=== PATIENT | male | born 1990 | race Two or more races ===

== ENCOUNTER 2018-07-27 06:15 | Emergency (ER) | payer OTHER ==
[~2018-07-27] VITALS: Ht 177.8 cm; Wt 95.3 kg
--- NOTE | 2018-07-27 06:15 | NUR ---
PT [id number] FROM HOME S/P WITNESSED SEIZURE LASTING ABOUT 1 MIN. -TRAUMA. -HX PER RA, BS 158. PT AOX4. NAD NOTED. RESP EVEN AND UNLABORED. DENIES PAIN AT THIS TIME. PT ON MONITOR IN BED 9. SEIZURE PRECAUTIONS IMPLEMENTED. WILL CONTINUE TO MONITOR.
[2018-07-27] MEDS ORDERED: LORAZEPAM INJ 2 MG/ML VIAL ONE (06:22)
--- NOTE | 2018-07-27 06:29 | NUR ---
BLOOD DRAWN AND GIVEN TO LAB
[2018-07-27] MEDS ORDERED: LORAZEPAM INJ 2 MG/ML VIAL IVP ONE (06:30)
[2018-07-27 06:37] LABS: BASOPHILS # (AUTO) 0.1 /CMM (0.0-0.2); BASOPHILS % (AUTO) 0.5 % (0.0-2.0); EOSINOPHILS % (AUTO) 0.5 % (0.0-6.0); HEMATOCRIT 48 % (39-51); HEMOGLOBIN 15.9 g/dL (13.5-17.5); LYMPHOCYTES # (AUTO) 4.1 /CMM (0.8-4.8); LYMPHOCYTES % (AUTO) 31.2 % (20.0-44.0); MEAN CORPUSCULAR HGB CONC 33 g/dl (31.0-36.0); MEAN CORPUSCULAR VOLUME 91 fL (80-96); MONOCYTES # (AUTO) 0.6 /CMM (0.1-1.30); MONOCYTES % (AUTO) 4.9 % (2.0-12.0); NEUTROPHILS # (AUTO) 8.3 /CMM (1.8-8.9); NEUTROPHILS % (AUTO) 62.9 % (43.0-81.0); PLATELET COUNT (AUTO) 241 /CMM (150-450); RED BLOOD CELL COUNT(AUTO) 5.26 MIL/uL (4.5-6.0); WHITE BLOOD COUNT (AUTO) 13.1 K/uL (4.3-11.0)
[2018-07-27] MEDS ORDERED: EPINEPHRINE (1:10,000) SYRINGE 1 MG/10 ML DISP.SYRIN ONE (06:42)
[2018-07-27 06:46] LABS: ALANINE AMINOTRANSFERASE 47 U/L (12-78); ALBUMIN 4.1 g/dL (3.4-5.0); ALCOHOL, BLOOD < 3 mg/dL (0-0); ALKALINE PHOSPHATASE 79 U/L (46-116); ASPARTATE AMINOTRANSFERASE 71 U/L (15-37); BILIRUBIN,DIRECT 0.3 mg/dL (0.0-0.2); BILIRUBIN,TOTAL 1.2 mg/dL (0.2-1.0); CALCIUM, SERUM 8.8 mg/dL (8.5-10.1); CARBON DIOXIDE 13 mmol/L (21-32); CHLORIDE 99 mmol/L (98-107); CREATININE 1.7 mg/dL (0.6-1.3); GLUCOSE 138 mg/dL (74-106); POTASSIUM 4.2 mmol/L (3.5-5.1); SODIUM SERUM 138 mmol/L (136-145); TOTAL PROTEIN, SERUM 8.1 g/dL (6.4-8.2); UREA NITROGEN, BLOOD 10 mg/dL (7-18)
--- NOTE | 2018-07-27 07:21 | NUR ---
RECEIVED REPORT FROM ALLY [facility], PT IS AAOX3, NOT IN RESPIRATORY DISTRESS, VS STABLE, URINAL GIVEN BUT UNABLE TO PROVIDE URINE SPECIMEN.
--- NOTE | 2018-07-27 07:59 | NUR ---
IV removed. Catheter intact and site benign. Pressure and 4x4 applied to site. No bleeding noted. Patient given written and verbal discharge instructions. Patient verbalizes understanding of instructions. Patient is ambulatory with steady gait. Refuses offer of residential placement. Patient given list of available shelters in surrounding area.
--- NOTE | 2018-07-27 08:00 | NUR ---
AWAITING SET OF CLOTHES AND BUS TAP.
[2018-07-27 08:20] VITALS: BP 133/82
== END 2018-07-27 08:22 | disposition home or self-care (01) ==
LOC: ER 06:17
DX: R56.9 Unspecified convulsions (principal); F41.9 Anxiety disorder, unspecified; F32.9 Major depressive disorder, single episode, unspecified
CPT/HCPCS: 36415; 70450; 80048; 80076; 80307; 82962; 85025; 96374; 99284; J0171; J2060; G0480